=== PATIENT | female | born 1985 | race Caucasian/White ===

== ENCOUNTER 2020-11-11 06:07 | Emergency (ER) | payer OTHER ==
[2020-11-11 06:57] VITALS: BMI 240.0
[2020-11-11] MEDS ORDERED: ONDANSETRON *ODT* 4 MG TABLET SL ONE (08:29)
[2020-11-11] MEDS ORDERED: ONDANSETRON *ODT* 4 MG TABLET ONE (08:39)
[2020-11-11 08:49] LABS: URINE APPEARANCE CLOUDY; URINE BILIRUBIN NEGATIVE (NEGATIVE); URINE COLOR YELLOW; URINE GLUCOSE (UA) NEGATIVE (NEGATIVE); URINE KETONE NEGATIVE (NEGATIVE); URINE LEUK ESTERASE NEGATIVE (NEGATIVE); URINE NITRITE NEGATIVE (NEGATIVE); URINE PROTEIN NEGATIVE (NEGATIVE); URINE UROBILINOGEN 0.2 mg/dL (0.2-1.0)
[2020-11-11] MEDS ORDERED: SODIUM CHLORIDE 0.9% 500 ML INFUS.BAG IV ONE (09:04)
[2020-11-11 09:26] LABS: EPI CELLS >36 /uL (0-25.1); HYALINE CASTS 7 /uL (0-3.1); URINE BACTERIA 1717 /uL (0-1359); URINE RBC 7 /uL (0-23.9); URINE WBC 3 /uL (0-25.8)
[2020-11-11 09:34] LABS: HCG,QUALITATIVE URINE NEGATIVE
[2020-11-11] MEDS ORDERED: KETOROLAC TROMETHAMINE 15 MG/ML VIAL IVPUSH ONE (09:34)
[2020-11-11 09:44] LABS: BASO % 0.3 % (0-2.0); EOS % 0.3 % (0-4.5); HEMATOCRIT 43.4 % (32.4-45.2); HEMOGLOBIN 15.4 GM/dL (10.7-15.3); LYMPH % 8.1 % (8-40); MCH 31.5 pg (25.7-33.7); MCHC 35.6 g/dl (32.0-36.0); MEAN CELL VOLUME 88.4 fl (80-96); MEAN PLT VOLUME 8.9 fl (7.5-11.1); MONO % 4.8 % (3.8-10.2); NEUT % 86.5 % (42.8-82.8); PLATELET COUNT 418 K/MM3 (134-434); RBC 4.91 M/mm3 (3.60-5.2); RDW 14.4 % (11.6-15.6); WHITE BLOOD COUNT 19.7 K/mm3 (4.0-10.0)
[2020-11-11] MEDS ORDERED: KETOROLAC TROMETHAMINE 15 MG/ML VIAL ONE (10:00)
[2020-11-11] MEDS ORDERED: ONDANSETRON 4 MG/2 ML VIAL IVPUSH ONE (10:03)
[2020-11-11 10:05] LABS: CHLORIDE 102 mmol/L (98-107)
[2020-11-11 10:12] LABS: CALCIUM 9.6 mg/dL (8.5-10.1)
[2020-11-11 10:15] LABS: CREATININE 0.9 mg/dL (0.55-1.3)
[2020-11-11 10:55] LABS: ALK PHOS 66 U/L (45-117); TOT PROT 8.9 g/dl (6.4-8.2)
[2020-11-11 10:57] LABS: BLOOD UREA NITROGEN 16.7 mg/dL (7-18); CO2 21 mmol/L (21-32); GLUCOSE,RANDOM 97 mg/dL (74-106); SODIUM 127 mmol/L (136-145)
[2020-11-11 10:58] LABS: ALBUMIN 3.5 g/dl (3.4-5.0); ANION GAP 4 MMOL/L (8-16)
[2020-11-11 11:05] LABS: BILIRUBIN,TOTAL < 0.1 mg/dL (0.2-1)
[2020-11-11 11:08] LABS: POTASSIUM > 10.0 mmol/L (3.5-5.1)
[2020-11-11 12:10] LABS: HEMATOCRIT 43.2 % (32.4-45.2); HEMOGLOBIN 14.8 GM/dL (10.7-15.3); MCH 31.9 pg (25.7-33.7); MCHC 34.2 g/dl (32.0-36.0); MEAN CELL VOLUME 93.2 fl (80-96); MEAN PLT VOLUME 8.2 fl (7.5-11.1); PLATELET COUNT 335 K/MM3 (134-434); RBC 4.64 M/mm3 (3.60-5.2); RDW 12.7 % (11.6-15.6); WHITE BLOOD COUNT 19.2 K/mm3 (4.0-10.0)
[2020-11-11 12:38] LABS: POTASSIUM 3.9 mmol/L (3.5-5.1)
[2020-11-11 12:40] LABS: CALCIUM 8.9 mg/dL (8.5-10.1)
[2020-11-11 12:41] LABS: ALBUMIN 3.9 g/dl (3.4-5.0); BLOOD UREA NITROGEN 15.5 mg/dL (7-18)
[2020-11-11 12:45] LABS: BILIRUBIN,TOTAL 1.3 mg/dL (0.2-1)
[2020-11-11 12:50] LABS: INR 1.01 (0.83-1.09); PROTHROMBIN TIME (PATIENT) 12.2 SEC (9.7-13.0)
[2020-11-11 12:53] LABS: ACTIVATED PTT 29.3 SECONDS (25.2-36.5)
[2020-11-11] MEDS ORDERED: LACTATED RINGERS SOLUTION 1000 ML INFUS.BAG IV ONE (15:13)
[2020-11-11] MEDS ORDERED: morphine SULFATE 4 MG/ML VIAL ONE (15:48)
[2020-11-11] MEDS ORDERED: morphine SULFATE 4 MG/ML VIAL IVPUSH ONE (15:48)
[2020-11-11] MEDS ORDERED: ACETAMINOPHEN 325 MG TABLET (FP) PO ONE (17:20)
[2020-11-11] MEDS ORDERED: ACETAMINOPHEN 325 MG TABLET (FP) ONE (17:22)
[2020-11-11 17:28] VITALS: BP 138/85; PULSE 112; TEMP 99.8
== END 2020-11-11 17:28 | disposition home or self-care (01) ==
LOC: JER 06:07
PROC: 3E0333Z Introduction of Anti-inflammatory into Peripheral Vein, Percutaneous Approach (ICD-10-PCS; principal; 2020-11-11)
PROC: 3E033GC Introduction of Other Therapeutic Substance into Peripheral Vein, Percutaneous Approach (ICD-10-PCS; 2020-11-11)
DX: R10.30 Lower abdominal pain, unspecified (principal)
CPT/HCPCS: 36415; 74176-TC; 74177-TC; 76830-TC; 80053; 81003; 81500; 83605; 83690; 84703; 85025; 85027; 85610; 85730; 86850; 86900; 86901; 87086; 87186; 87491; 87591; 99285-25; C9803; Q0162; Q9967; U0003